=== PATIENT | male | born 1970 | race Caucasian/White ===

== ENCOUNTER 2017-02-14 13:51 | Emergency (ER) | payer SELFPAY ==
--- NOTE | 2017-02-14 16:01 | RADIOLOGY REPORT (SQ) ---
EXAM DESCRIPTION: CHEST PA/LAT COMPLETED DATE/TIME: 02/14/2017 2:46 pm REASON FOR STUDY: cough COMPARISON: 01/06/2008 EXAM PARAMETERS: NUMBER OF VIEWS: two views TECHNIQUE: Digital Frontal and Lateral radiographic views of the chest acquired. RADIATION DOSE: NA LIMITATIONS: none FINDINGS: LUNGS AND PLEURA: No opacities, masses or pneumothorax. No pleural effusion. MEDIASTINUM AND HILAR STRUCTURES: No masses or contour abnormalities. HEART AND VASCULAR STRUCTURES: Heart normal size. No evidence for failure. BONES: No acute findings. HARDWARE: None in the chest. OTHER: No other significant finding. IMPRESSION: NO SIGNIFICANT RADIOGRAPHIC FINDING IN THE CHEST. TECHNICAL DOCUMENTATION: JOB ID: [id number] [employer]- All Rights Reserved
[2017-02-14 16:06] VITALS: BP 133/86
--- NOTE | 2017-02-14 16:06 | ER Document Report ---
ED General - General Chief Complaint: Cough Stated Complaint: COUGH Time Seen by Provider: 02/14/17 14:13 Mode of Arrival: Ambulatory Information source: Patient Notes: 46-year-old male presents with complaints of a cough over the past week. Patient denies any DVT PE risk factors. Patient notes the cough is non productive most of the time with mild white clear sputum. TRAVEL OUTSIDE OF THE [place] IN LAST 30 DAYS: No - HPI Onset: Last week Onset/Duration: Persistent Quality of pain: Achy Severity: Mild Pain Level: 1 Associated symptoms: Nonproductive cough, Productive cough Exacerbated by: Denies Relieved by: Denies Similar symptoms previously: Yes - Last year Recently seen / treated by doctor: No - Related Data Allergies/Adverse Reactions: Penicillins Allergy (Unknown, Verified 03/13/13 19:44) Past Medical History - Social History Smoking Status: Former Smoker Cigarette use (# per day): No Chew tobacco use (# tins/day): No Smoking Education Provided: No Family History: Reviewed & Not Pertinent Patient has suicidal ideation: No Patient has homicidal ideation: No Renal/ Medical History: Denies: Hx Peritoneal Dialysis Past Surgical History: Reports: Hx Inguinal Hernia - Immunizations Hx Diphtheria, Pertussis, Tetanus Vaccination: Yes Review of Systems - Review of Systems Notes: REVIEW OF SYSTEMS: CONSTITUTIONAL : Denies fever, chills, or sweats. Denies recent illness. EENT: Denies eye, ear, throat, or mouth pain or symptoms. Denies nasal or sinus congestion or discharge. Denies throat, tongue, or mouth swelling or difficulty swallowing. CARDIOVASCULAR: Denies chest pain. Denies palpitations or racing or irregular heart beat. Denies ankle edema. RESPIRATORY: Admits to cough GASTROINTESTINAL: Denies abdominal pain or distention. Denies nausea, vomiting , or diarrhea. Denies blood in vomitus, stools, or per rectum. Denies black, tarry stools. Denies constipation. GENITOURINARY: Denies difficulty urinating, painful urination, burning, frequency, blood in urine, or discharge. MUSCULOSKELETAL: Denies back or neck pain or stiffness. Denies joint pain or swelling. SKIN: Denies rash, lesions or sores. HEMATOLOGIC : Denies easy bruising or bleeding. LYMPHATIC: Denies swollen, enlarged glands. NEUROLOGICAL: Denies confusion or altered mental status. Denies passing out or loss of consciousness. Denies dizziness or lightheadedness. Denies headache. Denies weakness or paralysis or loss of use of either side. Denies problems with gait or speech. Denies sensory loss, numbness, or tingling. Denies seizures. PSYCHIATRIC: Denies anxiety or stress. Denies depression, suicidal ideation, or homicidal ideation. ALL OTHER SYSTEMS REVIEWED AND NEGATIVE. Dictation was performed using [employer] voice recognition software PHYSICAL EXAMINATION: GENERAL: Well-appearing, well-nourished and in no acute distress. HEAD: Atraumatic, normocephalic. EYES: Pupils equal round and reactive to light, extraocular movements intact, sclera anicteric, conjunctiva are normal. ENT: Nares patent, oropharynx clear without exudates. Moist mucous membranes. NECK: Normal range of motion, supple without lymphadenopathy LUNGS: Breath sounds clear to auscultation bilaterally and equal. No wheezes rales or rhonchi. HEART: Regular rate and rhythm without murmurs ABDOMEN: Soft, nontender, nondistended abdomen. No guarding, no rebound. No masses appreciated. Musculoskeletal: Normal range of motion, no pitting or edema. No cyanosis. NEUROLOGICAL: Cranial nerves grossly intact. Normal speech, normal gait. Normal sensory, motor exams PSYCH: Normal mood, normal affect. SKIN: Warm, Dry, normal turgor, no rashes or lesions noted. Physical Exam - Vital signs Vitals: Temp Pulse Resp BP Pulse Ox 97.4 F 66 20 134/81 H 97 02/14/17 14:06 02/14/17 14:06 02/14/17 14:06 02/14/17 14:06 02/14/17 14:06 Course - Re-evaluation Re-evalutation: 02/14/17 16:05 Lung sounds were clear physical examination was negative vital signs were within normal limits chest x-ray noted no obvious abnormality, given his complaints believe the patient has bronchitis and I will place him on steroids. He states when he had albuterol in the past he had a stroke from it. Given this history I will not write him for albuterol even though I find the reaction not very possible After performing a Medical Screening Examination, I estimate there is LOW risk for ACUTE CORONARY SYNDROME, RESPIRATORY FAILURE, SEPSIS OR MENINGITIS, thus I consider the discharge disposition reasonable. I have reevaluated this patient multiple times and no significant life threatening changes are noted. The patient and I have discussed the diagnosis and risks, and we agree with discharging home with close follow-up. We also discussed returning to the Emergency Department immediately if new or worsening symptoms occur. We have discussed the symptoms which are most concerning (e.g., changing or worsening pain, trouble swallowing or breathing, neck stiffness, fever) that necessitate immediate return. - Vital Signs Vital signs: Temp Pulse Resp BP Pulse Ox 97.4 F 66 20 134/81 H 97 02/14/17 14:06 02/14/17 14:06 02/14/17 14:06 02/14/17 14:02/14/17 14:06 - Diagnostic Test Radiology reviewed: Image reviewed, Reports reviewed - no acute abnormaltiy Discharge - Discharge Clinical Impression: Bronchitis, Nonproductive cough Disposition: HOME, SELF-CARE Instructions: Bronchitis ([facility]) Additional Instructions: Follow up with your physician tomorrow for further care or return to the ED IMMEDIATELY if symptoms worsen or new concerns occur. If you cannot afford to follow up with your primary care physician a list of low cost clinics have been provided at the end of your discharge papers as well. Prescriptions: Prednisone [Deltasone 20 mg Tablet] 3 tab PO DAILY 5 Days tablet
== END 2017-02-14 16:09 | disposition home or self-care (01) ==
LOC: ER 13:51
DX: J40 Bronchitis, not specified as acute or chronic (principal); R05 Cough; Z87.891 Personal history of nicotine dependence; Z88.0 Allergy status to penicillin
CPT/HCPCS: 71020; 99283

== ENCOUNTER 2018-05-02 17:56 | Emergency (ER) | payer SELFPAY ==
[2018-05-02] MEDS ORDERED: LIDOCAINE 1%/EPINEPHRINE INJ 20 ML VIAL INJ ONE (20:04)
[2018-05-02] MEDS ORDERED: DIPH/PERTUSS(ACELL)/TETANUS VAC/PF 0.5 ML SYR (>=10YO) IM ONE (20:04)
--- NOTE | 2018-05-02 20:17 | ER Document Report ---
ED Wound - General Chief Complaint: Laceration Stated Complaint: LACERATION TO RIGHT HAND Time Seen by Provider: 05/02/18 19:59 Mode of Arrival: Ambulatory Information source: Patient Notes: Patient is a 48-year-old male arriving to the emergency department complaining of a laceration sustained on his right distal forearm while he was reaching inside his heating device at his home when his arm brushed against something sharp while reaching inside the machine. Full range of motion is intact, the bleeding stopped with pressure and he complains of minimal pain currently. He is not up-to-date with his tetanus vaccine. He denies all medical problems and does not take any medications. 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 TRAVEL OUTSIDE OF THE [place] IN LAST 30 DAYS: No - HPI Patient complains to provider of: Laceration Occurred: Just prior to arrival Onset/Duration: Sudden Quality of pain: Sharp Severity: Moderate Pain Level: 2 Context: Injury Skin Temperature: Warm Skin Color: Normal Capillary refill: < 3 seconds Sensations intact: Yes Distal pulses present: Yes Associated Symptoms: None - Related Data Allergies/Adverse Reactions: Penicillins Allergy (Unknown, Verified 03/13/13 19:44) Home Medications: None Past Medical History - General Information source: Patient - Social History Smoking Status: Current Every Day Smoker Smoking Education Provided: Yes Frequency of alcohol use: None Drug Abuse: None Lives with: Family Family History: Reviewed & Not Pertinent - Medical History Medical History: Negative Renal/ Medical History: Denies: Hx Peritoneal Dialysis Past Surgical History: Reports: Hx Inguinal Hernia - Immunizations Hx Diphtheria, Pertussis, Tetanus Vaccination: Yes Review of Systems - Review of Systems Constitutional: No symptoms reported EENT: No symptoms reported Cardiovascular: No symptoms reported Respiratory: No symptoms reported Gastrointestinal: No symptoms reported Genitourinary: No symptoms reported Male Genitourinary: No symptoms reported Musculoskeletal: No symptoms reported Skin: Other - laceration Hematologic/Lymphatic: No symptoms reported Neurological/Psychological: No symptoms reported Physical Exam - Vital signs Vitals: Temp Pulse Resp BP Pulse Ox 98.3 F 92 12 150/88 H 95 05/02/18 18:00 05/02/18 18:00 05/02/18 18:00 05/02/18 18:00 05/02/18 18:00 - Notes Notes: GENERAL: Well-appearing, well-nourished and in no acute distress. HEAD: Atraumatic, normocephalic. EYES: Pupils equal round and reactive to light, extraocular movements intact, sclera anicteric, conjunctiva are normal. ENT: TMs normal, nares patent, oropharynx clear without exudates. Moist mucous membranes. NECK: Normal range of motion, supple without lymphadenopathy or JVD. LUNGS: Breath sounds clear to auscultation bilaterally and equal. No wheezes rales or rhonchi. HEART: Regular rate and rhythm without murmurs, rubs or gallops. ABDOMEN: Soft, nontender, normoactive bowel sounds. No guarding, no rebound. No masses appreciated. EXTREMITIES: Normal range of motion, no pitting or edema. No clubbing or cyanosis. NEUROLOGICAL: Cranial nerves II through XII grossly intact. Normal speech, normal gait. PSYCH: Normal mood, normal affect. SKIN: Warm, Dry, normal turgor, no rashes. 3.5 cm laceration noted on his right distal forearm with no active bleeding. No gross contamination noted. Full range of motion and sensation are intact. Cap refill is less than 3 seconds. Course - Vital Signs Vital signs: Temp Pulse Resp BP Pulse Ox 98.4 F 97 20 142/99 H 98 05/02/18 21:33 05/02/18 21:33 05/02/18 21:33 05/02/18 21:33 05/02/18 21:33 Procedures - Laceration/Wound Repair Right Posterior Wrist Time completed: 21:14 Wound length (cm): 3.3 Wound's Depth, Shape: Flap Laceration pre-procedure: Sterile drapes applied, Shur-Clens applied Anesthetic type: 1% Lidocaine w/epi Volume Anesthetic (mLs): 5 Wound explored: No foreign body removed Irrigated w/ Saline (mLs): 400 Wound Debrided: Minimal Wound Repaired With: Sutures Suture Size/Type: 3:0, Ethilon Number of Sutures: 4 Layer Closure?: No Post-procedure wound care: Sterile dressing applied Post-procedure NV exam normal: Yes - motor intact and cap refill <3 sec Complications: No Hands back picture: 1 - 3.25cm curvilinear laceration with flap. Closed with 3 simple interrupted and 1 horizontal mattress suture. Discharge - Discharge Clinical Impression: Forearm laceration Qualifiers: Encounter type: initial encounter Laterality: right Qualified Code(s): S51.811A - Laceration without foreign body of right forearm, initial encounter Condition: Stable Disposition: HOME, SELF-CARE Instructions: Laceration Care ([facility]), Tetanus Immunization Given ([facility]) Additional Instructions: Return immediately for any new or worsening symptoms Followup with your primary care provider, call tomorrow to make a followup appointment Suture removal in 10 days Forms: Return to Work Referrals: [facility] [Provider Group] - Follow up as needed [facility] [Provider Group] - Follow up as needed
[2018-05-02 21:34] VITALS: BP 142/99
== END 2018-05-02 21:41 | disposition home or self-care (01) ==
LOC: ER 17:56
DX: S61.511A Laceration without foreign body of right wrist, initial encounter (principal); W26.9XXA Contact with unspecified sharp object(s), initial encounter; Y93.89 Activity, other specified; Y92.009 Unspecified place in unspecified non-institutional (private) residence as the place of occurrence of the external cause; F17.210 Nicotine dependence, cigarettes, uncomplicated; Z88.0 Allergy status to penicillin
CPT/HCPCS: 99283; 12002; J3490

== ENCOUNTER 2018-05-12 17:13 | Emergency (ER) | payer SELFPAY ==
--- NOTE | 2018-05-12 18:16 | ER Document Report ---
ED Suture/Wound Recheck - General Chief Complaint: Suture Removal Stated Complaint: SUTURE REMOVAL/RIGHT WRIST Time Seen by Provider: 05/12/18 18:14 Mode of Arrival: Ambulatory Information source: Patient Notes: 48-year-old male presented to ED for removal of sutures from the right distal forearm. Wound is clean dry no drainage no redness no pain. Wound well approximated. Patient alert and oriented respirations regular and in full sentences walks with a even steady gait. TRAVEL OUTSIDE OF THE [place] IN LAST 30 DAYS: No - HPI Previous ED treatment: Laceration repair Quality of pain: No pain Severity: None Pain Level: Denies Context: Injury Symptoms since procedure: No complaints Exacerbated by: Denies Relieved by: Denies - Related Data Allergies/Adverse Reactions: Penicillins Allergy (Unknown, Verified 03/13/13 19:44) Past Medical History - General Information source: Patient - Social History Smoking Status: Current Every Day Smoker Cigarette use (# per day): Yes Smoking Education Provided: Yes - 4 minutes Frequency of alcohol use: None Drug Abuse: None Family History: Reviewed & Not Pertinent Patient has suicidal ideation: No Patient has homicidal ideation: No - Past Medical History Cardiac Medical History: Reports: None Pulmonary Medical History: Reports: None EENT Medical History: Reports: None Neurological Medical History: Reports: None Endocrine Medical History: Reports: None Renal/ Medical History: Reports: None Malignancy Medical History: Reports None GI Medical History: Reports: None Musculoskeletal Medical History: Reports None Skin Medical History: Reports None Psychiatric Medical History: Reports: None Traumatic Medical History: Reports: None Infectious Medical History: Reports: None Past Surgical History: Reports: Hx Inguinal Hernia - Immunizations Immunizations up to date: Yes Hx Diphtheria, Pertussis, Tetanus Vaccination: Yes Review of Systems - Review of Systems Notes: REVIEW OF SYSTEMS: CONSTITUTIONAL : Denies fever, chills, or sweats. Denies recent illness. EENT: Denies eye, ear, throat, or mouth pain or symptoms. Denies nasal or sinus congestion or discharge. Denies throat, tongue, or mouth swelling or difficulty swallowing. CARDIOVASCULAR: Denies chest pain. Denies palpitations or racing or irregular heart beat. Denies ankle edema. RESPIRATORY: Denies cough, cold, or chest congestion. Denies shortness of breath, difficulty breathing, or wheezing. GASTROINTESTINAL: Denies abdominal pain or distention. Denies nausea, vomiting , or diarrhea. Denies blood in vomitus, stools, or per rectum. Denies black, tarry stools. Denies constipation. GENITOURINARY: Denies difficulty urinating, painful urination, burning, frequency, blood in urine, or discharge. MUSCULOSKELETAL: Denies back or neck pain or stiffness. Denies joint pain or swelling. SKIN: Patient to the ED for suture removal from his right wrist area. States he cut it on a heating device at home. States he just needs the sutures removed he is not having any pain discomfort redness or drainage. HEMATOLOGIC : Denies easy bruising or bleeding. LYMPHATIC: Denies swollen, enlarged glands. NEUROLOGICAL: Denies confusion or altered mental status. Denies passing out or loss of consciousness. Denies dizziness or lightheadedness. Denies headache. Denies weakness or paralysis or loss of use of either side. Denies problems with gait or speech. Denies sensory loss, numbness, or tingling. Denies seizures. PSYCHIATRIC: Denies anxiety or stress. Denies depression, suicidal ideation, or homicidal ideation. ALL OTHER SYSTEMS REVIEWED AND NEGATIVE. Dictation was performed using [employer] voice recognition software PHYSICAL EXAMINATION: GENERAL: Well-appearing, well-nourished and in no acute distress. HEAD: Atraumatic, normocephalic. EYES: Pupils equal round and reactive to light, extraocular movements intact, sclera anicteric, conjunctiva are normal. ENT: Nares patent, oropharynx clear without exudates. Moist mucous membranes. NECK: Normal range of motion, supple without lymphadenopathy LUNGS: Breath sounds clear to auscultation bilaterally and equal. No wheezes rales or rhonchi. HEART: Regular rate and rhythm without murmurs ABDOMEN: Soft, nontender, nondistended abdomen. No guarding, no rebound. No masses appreciated. Musculoskeletal: Normal range of motion, no pitting or edema. No cyanosis. NEUROLOGICAL: Cranial nerves grossly intact. Normal speech, normal gait. Normal sensory, motor exams PSYCH: Normal mood, normal affect. SKIN: Warm, Dry, normal turgor, no rashes or lesions noted. Wound well approximated no redness no drainage no tenderness to the area Physical Exam - Vital signs Vitals: Temp Pulse Resp BP Pulse Ox 97.8 F 93 18 139/83 H 97 05/12/18 17:26 05/12/18 17:26 05/12/18 17:26 05/12/18 17:26 05/12/18 17:26 Course - Vital Signs Vital signs: Temp Pulse Resp BP Pulse Ox 97.8 F 88 14 125/78 98 05/12/18 18:17 05/12/18 18:17 05/12/18 18:17 05/12/18 18:17 05/12/18 18:17 Discharge - Discharge Clinical Impression: Visit for suture removal Condition: Stable Disposition: HOME, SELF-CARE Instructions: Family Physicians / Practices Additional Instructions: SOAP CLEANSING: Gently wash the wound daily using a mild soap (like Ivory, Phisoderm, Neutrogena). Use warm water, rubbing gently until all debris, ooze, and crusting have been washed from the wound. Allow to dry briefly (about 10 minutes) after cleaning. Repeat this cleansing at least three times a day for the first two days and then once or twice a day. ANTIBIOTIC OINTMENT PROTECTION: Your wounds are such that dressing them is not practical or optional. After cleansing, you should apply a thin coating of antibiotic ointment ( Bacitracin, not Neosporin) to the wounds at least three times daily. This lessens infection risk, and may decrease the amount of scarring. Use a q-tip or dull butter knife, not your finger, to apply this ointment. Any debris or ooze which builds up in the ointment should be gently rubbed off with a sterile gauze pad. Harder crusting may need to be gently scrubbed off with a clean wash cloth with soap and warm water, perhaps applying a warm, wet wash cloth to the wound for ten minutes first. Development of redness, severe itching, or blistering may mean allergy to the ointment. See the doctor. FOLLOW-UP CARE: If you have been referred to a physician for follow-up care, call the physician s office for an appointment as you were instructed or within the next two days. If you experience worsening or a significant change in your symptoms, notify the physician immediately or return to the Emergency Department at any time for re-evaluation. Forms: Elevated Blood Pressure, Smoking Cessation Education
[2018-05-12 18:18] VITALS: BP 125/78
== END 2018-05-12 18:20 | disposition home or self-care (01) ==
LOC: ER 17:13
DX: S51.811D Laceration without foreign body of right forearm, subsequent encounter (principal); X58.XXXD Exposure to other specified factors, subsequent encounter; F17.210 Nicotine dependence, cigarettes, uncomplicated

== ENCOUNTER 2018-05-25 12:48 | Emergency (ER) | payer OTHER ==
--- NOTE | 2018-05-25 14:27 | ER Document Report ---
ED Fall - General Chief Complaint: Fall Stated Complaint: LEFT ELBOW/LEG PAIN Time Seen by Provider: 05/25/18 14:17 Notes: Patient is a 48-year-old male presents to the emergency department complaining of falling 8 feet off a ladder at 930 this morning. Patient states he landed on his left side. Patient denies hitting his head, loss of consciousness or vomiting. Patient states he fell directly onto cement. States he took Motrin prior to arrival to the emergency room. Patient denies feeling lightheaded, dizzy, weak prior to the fall or after the fall. Patient states he thought he had planted a ladder securely but apparently had not and it slipped. According to patient this is a mechanical fall. Patient is unsure of his last tetanus vaccination. Past medical history: None Medications: None Allergies: Penicillin TRAVEL OUTSIDE OF THE [place] IN LAST 30 DAYS: No - Related data Allergies/Adverse Reactions: Penicillins Allergy (Unknown, Verified 03/13/13 19:44) Past Medical History - General Information source: Patient - Social History Smoking Status: Current Every Day Smoker Family History: Reviewed & Not Pertinent Renal/ Medical History: Denies: Hx Peritoneal Dialysis Past Surgical History: Reports: Hx Inguinal Hernia - Immunizations Immunizations up to date: Yes Hx Diphtheria, Pertussis, Tetanus Vaccination: Yes Review of Systems - Review of Systems Constitutional: See HPI EENT: denies: Blurred vision, Ear discharge Cardiovascular: denies: Dizziness, Lightheaded Respiratory: No symptoms reported Gastrointestinal: No symptoms reported Genitourinary: No symptoms reported Male Genitourinary: No symptoms reported Musculoskeletal: See HPI Skin: See HPI Hematologic/Lymphatic: No symptoms reported Neurological/Psychological: See HPI Physical Exam - Vital signs Vitals: Temp Pulse Resp BP Pulse Ox 98.1 F 88 16 127/77 H 97 05/25/18 12:50 05/25/18 12:50 05/25/18 12:50 05/25/18 12:50 05/25/18 12:50 - Notes Notes: GENERAL: Alert, interacts well. No acute distress. HEAD: Normocephalic, atraumatic. EYES: Pupils equal, round, and reactive to light. Extraocular movements intact. ENT: Oral mucosa moist, tongue midline. Nares patent, no nasal septal hematoma, TM's intact, no hemotympanum bilaterally NECK: Full range of motion. Supple. Trachea midline. LUNGS: Clear to auscultation bilaterally, no wheezes, rales, or rhonchi. No respiratory distress. CHEST: No crepitus felt, no paradoxical motion noted, no erythema or ecchymosis noted to the trunk HEART: Regular rate and rhythm. No murmur ABDOMEN: Soft, non-tender. Non-distended. Bowel sounds present in all 4 quadrants. EXTREMITIES: Moves all 4 extremities spontaneously. normal radial and dorsalis pedis pulses bilaterally. No cyanosis. Minor ecchymosis noted left lateral proximal thigh. Full range of motion left hip without pain upon palpation. Full range of motion left knee and ankle. left lower extremity otherwise atraumatic. Left upper extremity has full range of motion shoulder, elbow, wrist. Superficial abrasion noted posterior left distal wrist laterally. 2 cm laceration noted directly over the left elbow. Bleeding controlled. 5 out of 5 strength all 4 extremities. Right upper and lower extremity atraumatic. BACK: no cervical, thoracic, lumbar midline tenderness. No saddle anesthesia, normal distal neurovascular exam. NEUROLOGICAL: Alert and oriented x3. Normal speech. cranial nerves II through XII grossly intact. PSYCH: Normal affect, normal mood. SKIN: Warm, dry, normal turgor. Course - Re-evaluation Re-evalutation: 05/25/18 16:18 Laceration repaired, patient tolerated well no complications. X-rays revealed no signs of fractures. Discussed at length with patient he may be more sore tomorrow and the day after. Discussed at home Tylenol and Motrin for pain. Patient continues to deny chest pain or abdominal pain. Patient remains non- tachycardic and not hypotensive. Stable for discharge. - Vital Signs Vital signs: Temp Pulse Resp BP Pulse Ox 98.1 F 88 16 127/77 H 97 05/25/18 12:50 05/25/18 12:50 05/25/18 12:50 05/25/18 12:50 05/25/18 12:50 Procedures - Laceration/Wound Repair Elbow Wound length (cm): 2 Wound's Depth, Shape: Superficial Laceration pre-procedure: Sterile PPE donned, Betadine prep applied, Sterile drapes applied, Shur-Clens applied Anesthetic type: 1% Lidocaine w/epi Volume Anesthetic (mLs): 5 Wound explored: Clean Irrigated w/ Saline (mLs): 300 Wound Debrided: Minimal Wound Repaired With: Sutures Suture Size/Type: 3:0, Ethilon Number of Sutures: 3 Post-procedure wound care: Sterile dressing applied Post-procedure NV exam normal: Yes Complications: No Discharge - Discharge Clinical Impression: Laceration Fall Qualifiers: Encounter type: initial encounter Qualified Code(s): W19.XXXA - Unspecified fall, initial encounter Elbow pain Qualifiers: Laterality: left Qualified Code(s): M25.522 - Pain in left elbow Thigh pain Qualifiers: Laterality: left Qualified Code(s): M79.652 - Pain in left thigh Condition: Stable Disposition: HOME, SELF-CARE Instructions: Antibiotic Ointment Protection ([facility]), Laceration Care ([facility]), Tetanus Immunization Given ([facility]) Additional Instructions: As we discussed your seen and treated in the emergency department for a fall and sustaining a laceration to her left elbow. Sutures need to be removed in the next 10-14 days. Follow-up with your primary care provider or return to the emergency room. Should your left elbow appear to be infected, get red, warm , increasing swelling or have any discharge from your lacerations you should return to the emergency room please take [id number] Tylenol and Motrin for generalized pain. Please return to the emergency room for any other concerning symptoms Forms: Return to Work
[2018-05-25] MEDS ORDERED: HYDROCODONE/ACETAMINOPHEN 10-325 MG TABLET PO ONE (14:32)
[2018-05-25] MEDS ORDERED: DIPH/PERTUSS(ACELL)/TETANUS VAC/PF 0.5 ML SYR (>=10YO) IM ONE (14:33)
[2018-05-25] MEDS ORDERED: LIDOCAINE 1%/EPINEPHRINE INJ 20 ML VIAL INJ ONE (14:34)
--- NOTE | 2018-05-25 15:08 | RADIOLOGY REPORT (SQ) ---
EXAM DESCRIPTION: FEMUR LEFT COMPLETED DATE/TIME: 05/25/2018 3:00 pm REASON FOR STUDY: fall COMPARISON: None. NUMBER OF VIEWS: Two views. TECHNIQUE: Two radiographic images acquired of the left femur to include hip and knee in at least on e projection. LIMITATIONS: None. FINDINGS: MINERALIZATION: Normal. BONES: No acute fracture. No worrisome bone lesions. SOFT TISSUES: No obvious swelling or foreign body. OTHER: No other significant finding. IMPRESSION: NEGATIVE STUDY OF THE LEFT FEMUR. NO RADIOGRAPHIC EVIDENCE OF ACUTE INJURY. TECHNICAL DOCUMENTATION: JOB ID: [id number] [employer]- All Rights Reserved Reading location - IP/workstation name: [email or web address]
--- NOTE | 2018-05-25 15:10 | RADIOLOGY REPORT (SQ) ---
EXAM DESCRIPTION: FOREARM LEFT COMPLETED DATE/TIME: 05/25/2018 3:00 pm REASON FOR STUDY: fall COMPARISON: None. NUMBER OF VIEWS: Two views. TECHNIQUE: Two radiographic images acquired of the left forearm, including elbow and wrist in at jen st one projection. LIMITATIONS: None. FINDINGS: MINERALIZATION: Normal. BONES: No acute fracture. No worrisome bone lesions. SOFT TISSUES: No obvious swelling or foreign body. OTHER: No other significant finding. IMPRESSION: NEGATIVE STUDY OF THE LEFT FOREARM. NO RADIOGRAPHIC EVIDENCE OF ACUTE INJURY. TECHNICAL DOCUMENTATION: JOB ID: [id number] [employer]- All Rights Reserved Reading location - IP/workstation name: [email or web address]
--- NOTE | 2018-05-25 15:11 | RADIOLOGY REPORT (SQ) ---
EXAM DESCRIPTION: ELBOW LEFT OVER 2 VIEWS COMPLETED DATE/TIME: 05/25/2018 3:01 pm REASON FOR STUDY: fall COMPARISON: None. NUMBER OF VIEWS: Four views. TECHNIQUE: AP, lateral, and both oblique radiographic images acquired of the left elbow. LIMITATIONS: None. FINDINGS: MINERALIZATION: Normal. BONES: No acute fracture or dislocation. No worrisome bone lesions. JOINT: No effusion. SOFT TISSUES: No soft tissue swelling. No foreign body. OTHER: No other significant finding. IMPRESSION: NEGATIVE STUDY OF THE LEFT ELBOW. NO RADIOGRAPHIC EVIDENCE OF ACUTE INJURY. TECHNICAL DOCUMENTATION: JOB ID: [id number] [employer]- All Rights Reserved Reading location - IP/workstation name: [email or web address]
[2018-05-25 16:50] VITALS: BP 132/77
== END 2018-05-25 16:48 | disposition home or self-care (01) ==
LOC: ER 12:48
PROC: 0HQEXZZ Repair Left Lower Arm Skin, External Approach (ICD-10-PCS; principal; 2018-05-25)
DX: S51.012A Laceration without foreign body of left elbow, initial encounter (principal); M25.522 Pain in left elbow; M79.652 Pain in left thigh; M79.605 Pain in left leg; W11.XXXA Fall on and from ladder, initial encounter; F17.200 Nicotine dependence, unspecified, uncomplicated
CPT/HCPCS: 99283; 90471; 73080; 73552; 73090; 90715; 12001; J3490

== ENCOUNTER 2018-06-04 10:49 | Emergency (ER) | payer OTHER ==
--- NOTE | 2018-06-04 11:16 | ER Document Report ---
ED Medical Screen (RME) - General Chief Complaint: Knee Pain Stated Complaint: SUTURE REMOVAL Time Seen by Provider: 06/04/18 11:14 Mode of Arrival: Ambulatory Information source: Patient TRAVEL OUTSIDE OF THE [place] IN LAST 30 DAYS: No - HPI Patient complains to provider of: SR and R knee pain Onset: Other - pt. here for SR L elbow and has had R knee pain for the past 2-3 days - Related Data Allergies/Adverse Reactions: Penicillins Allergy (Unknown, Verified 06/04/18 10:50) Past Medical History - Social History Chew tobacco use (# tins/day): No Drug Abuse: None Renal/ Medical History: Denies: Hx Peritoneal Dialysis Past Surgical History: Reports: Hx Inguinal Hernia - Immunizations Immunizations up to date: Yes Hx Diphtheria, Pertussis, Tetanus Vaccination: Yes Physical Exam - Vital signs Vitals: Temp Pulse Resp BP Pulse Ox 97.8 F 64 18 140/94 H 99 06/04/18 10:54 06/04/18 10:54 06/04/18 10:54 06/04/18 10:54 06/04/18 10:54 Course - Vital Signs Vital signs: Temp Pulse Resp BP Pulse Ox 97.8 F 64 18 140/94 H 99 06/04/18 10:54 06/04/18 10:54 06/04/18 10:54 06/04/18 10:54 06/04/18 10:54
--- NOTE | 2018-06-04 11:52 | RADIOLOGY REPORT (SQ) ---
EXAM DESCRIPTION: KNEE RIGHT 3 VIEWS COMPLETED DATE/TIME: 06/04/2018 11:42 am REASON FOR STUDY: R knee pain COMPARISON: 10/17/2010 NUMBER OF VIEWS: Three views. TECHNIQUE: AP, lateral, and sunrise patella radiographic images acquired of the right knee. LIMITATIONS: None. FINDINGS: MINERALIZATION: Normal. BONES: No acute fracture or dislocation. No worrisome bone lesions. JOINT: No effusion. SOFT TISSUES: No soft tissue swelling. No radio-opaque foreign body. OTHER: No other significant finding. IMPRESSION: NEGATIVE STUDY OF THE RIGHT KNEE. NO RADIOGRAPHIC EVIDENCE OF ACUTE INJURY. TECHNICAL DOCUMENTATION: JOB ID: [id number] [employer]- All Rights Reserved Reading location - IP/workstation name: [email or web address]
--- NOTE | 2018-06-04 12:19 | ER Document Report ---
ED Extremity Problem, Lower - General Chief Complaint: Knee Pain Stated Complaint: SUTURE REMOVAL Time Seen by Provider: 06/04/18 11:14 Mode of Arrival: Ambulatory Notes: 48-year-old male was presented to ED for complaint of right knee pain and need to have sutures removed from his left elbow. He states that the knee pain is been chronic no changes no swelling he just wanted to have someone look at his knee. He said mainly he wanted the sutures removed from his left elbow from his injury a week ago. Patient has full range of motion to the knee and is ambulating with even steady gait. There is no swelling bruising or changes noted to the knee. TRAVEL OUTSIDE OF THE [place] IN LAST 30 DAYS: No - HPI Patient complains to provider of: Other - Need for suture removal from left elbow and complaint of chronic knee pain Location: Knee Occurred: Other - On Onset/Duration: Intermittent Quality of pain: Achy Severity: None Pain Level: Denies Context: Other - Chronic knee pain no actual knee pain at this time Recent injury: No Exacerbated by: Movement, Walking Relieved by: Nothing - Related Data Allergies/Adverse Reactions: Penicillins Allergy (Unknown, Verified 06/04/18 10:50) Past Medical History - General Information source: Patient - Social History Smoking Status: Current Every Day Smoker Cigarette use (# per day): Yes Chew tobacco use (# tins/day): No Smoking Education Provided: Yes - 4 minutes Frequency of alcohol use: Occasional Drug Abuse: None Family History: Reviewed & Not Pertinent Patient has suicidal ideation: No Patient has homicidal ideation: No - Past Medical History Cardiac Medical History: Reports: None Pulmonary Medical History: Reports: None EENT Medical History: Reports: None Neurological Medical History: Reports: None Endocrine Medical History: Reports: None Renal/ Medical History: Reports: None Malignancy Medical History: Reports None GI Medical History: Reports: None Musculoskeletal Medical History: Reports Hx Musculoskeletal Trauma Skin Medical History: Reports None Psychiatric Medical History: Reports: None Traumatic Medical History: Reports: None Infectious Medical History: Reports: None Past Surgical History: Reports: Hx Inguinal Hernia - Immunizations Immunizations up to date: Yes Hx Diphtheria, Pertussis, Tetanus Vaccination: Yes Review of Systems - Review of Systems Constitutional: No symptoms reported EENT: No symptoms reported Cardiovascular: No symptoms reported Respiratory: No symptoms reported Gastrointestinal: No symptoms reported Genitourinary: No symptoms reported Male Genitourinary: No symptoms reported Musculoskeletal: No symptoms reported Skin: Other - Sutures to left elbow removed no redness no drainage no signs of inflammation or infection. Laceration doing well. Hematologic/Lymphatic: No symptoms reported Neurological/Psychological: No symptoms reported -: Yes All other systems reviewed and negative Physical Exam - Vital signs Vitals: Temp Pulse Resp BP Pulse Ox 97.8 F 64 18 140/94 H 99 06/04/18 10:54 06/04/18 10:54 06/04/18 10:54 06/04/18 10:54 06/04/18 10:54 Interpretation: Normal - General General appearance: Appears well, Alert - HEENT Head: Normocephalic, Atraumatic Eyes: Normal Pupils: PERRL - Respiratory Respiratory status: No respiratory distress Chest status: Nontender Breath sounds: Normal Chest palpation: Normal - Cardiovascular Rhythm: Regular Heart sounds: Normal auscultation Murmur: No - Abdominal Inspection: Normal Distension: No distension Bowel sounds: Normal Tenderness: Nontender Organomegaly: No organomegaly - Back Back: Normal, Nontender - Extremities General upper extremity: Normal inspection, Nontender, Normal color, Normal ROM, Normal temperature General lower extremity: Normal inspection, Nontender, Normal color, Normal ROM, Normal temperature, Normal weight bearing. No: Mariano's sign Knee: Tender, Patellar tendon intact, Tender joint line. No: Abrasion, Deformity, Dislocation, Drawer's test instability, Ecchymosis, Instability, Joint effusion, Laceration, Laxity with valgus stress, Laxity with varus stress, Pain with ROM, Popliteal fossa tender, Unable to bear weight - Neurological Neuro grossly intact: Yes Cognition: Normal Orientation: AAOx4 Paradise Coma Scale Eye Opening: Spontaneous Paradise Coma Scale Verbal: Oriented Susan Coma Scale Motor: Obeys Commands Paradise Coma Scale Total: 15 Speech: Normal Motor strength normal: LUE, RUE, LLE, RLE Sensory: Normal - Psychological Associated symptoms: Normal affect, Normal mood - Skin Skin Temperature: Warm Skin Moisture: Dry Skin Color: Normal Skin irregularity: Laceration - Well granulated no signs of infection no inflammation no redness no drainage Location of irregularity: Extremities - Left elbow Course - Vital Signs Vital signs: Temp Pulse Resp BP Pulse Ox 97.5 F 61 16 129/86 H 100 06/04/18 12:19 06/04/18 12:19 06/04/18 12:19 06/04/18 12:19 06/04/18 12:19 Discharge - Discharge Clinical Impression: Visit for suture removal Right knee pain Qualifiers: Chronicity: chronic Qualified Code(s): M25.561 - Pain in right knee Condition: Stable Disposition: HOME, SELF-CARE Instructions: Family Physicians / Practices, Suture Removal Additional Instructions: Arthralgia Arthralgia is pain in the joints. We use the word arthralgia to describe joint pain where there's no history of injury, no known joint disease, and the joints are normal to examination. Arthralgia can be a symptom of an acute illness, such as influenza, hepatitis, or serum sickness. Sometimes the joint pain comes before any other symptoms. Arthralgia can also be an early symptom of joint disease, such as rheumatoid arthritis or lupus. If arthralgia is accompanied by an acute illness that explains the joint pain, such as mononucleosis, no further testing needs to be done. When there's no clear reason for the pain, tests may be done to see if there's an inflammatory disease of the joints. The usual treatment is anti-inflammatory medication, such as ibuprofen. Joint aches can be soothed with a heating pad or hot compress. If joints remain painful more than a few days, you'll need testing and followup. Return if a joint becomes swollen, red, or severely painful. Chronic Pain Control Stress, inactivity, and depression make pain more severe regardless of the cause of the pain. Stress and poor physical condition can cause pain such as headaches and backache. Relaxation: Rest in a quiet place with your eyes closed for 20 minutes twice daily. Concentrate on a pleasant image, or simply "feel" your breathing. Clear your mind. Stress management: Deal with your "stressors." Either take action, or eliminate the stressor from your life. Don't let things hang over you. Accept those things you can't change. Nutrition: Eat small, balanced meals -- don't skip, don't overeat. Meals should be high-carbohydrate, low-sugar, low-fat. Exercise: Exercise helps painful conditions and eases stress. Get 30 minutes of moderate exercise, five days a week. Do an activity that does not flare your pain. Precautions: Pain which continues to disrupt daily activities, or which changes in nature, requires a medical evaluation. Pain Clinic referral is available. We do not manage chronic pain in the Emergency Department. We will try to appropriately help you through an acute flare of your chronic painful condition, but for on-going chronic pain that does not improve, you will need to see your private doctor or automotive painter helper. We do not provide repeated medication management of chronic painful conditions. If you wish, we can provide the name of local pain management physicians. Acetaminophen Acetaminophen may be taken for pain relief or fever control. It's much safer than aspirin, offering a wider range of "safe" dosages. It is safe during . Some brand names are Tylenol, Panadol, Datril, Anacin 3, Tempra, and Liquiprin. Acetaminophen can be repeated every four hours. The following are maximum recommended dosages: WEIGHT Dose Drops Elixir Chewable(80mg) (LBS.) drprs=droppers tsp=teaspoon 6 40 mg .4 ml (1/2) 6-11 80 mg .8 ml (full) 1/2 tsp 1 tab 12-16 120 mg 1 1/2 drprs 3/4 tsp 1 1/2 tabs 17-23 160 mg 2 drprs 1 tsp 2 tabs 24-30 240 mg 3 drprs 1 1/2 tsp 3 tabs 30-35 320 mg 2 tsp 4 tabs 36-41 360 mg 2 1/4 tsp 4 1/2 tabs 42-47 400 mg 2 1/2 tsp 5 tabs 48-53 480 mg 3 tsp 6 tabs 54-59 520 mg 3 1/4 tsp 6 1/2 tabs 60-64 560 mg 3 1/2 tsp 7 tabs 65-70 600 mg 3 3/4 tsp 7 1/2 tabs 71-76 640 mg 4 tsp 8 tabs 77-82 720 mg 4 1/2 tsp 9 tabs 83-88 800 mg 5 tsp 10 tabs >89 pounds or adults 650 mg to 900 mg Acetaminophen can be repeated every four hours. Maximum daily dose not to exceed 4000 mg. These maximum recommended dosages are slightly higher than the dosages written on the product container, but these dosages are very safe and well below the toxic dosage for acetaminophen. Ibuprofen Ibuprofen is an excellent, safe drug for pain control. In addition, it has potent antiinflammatory effects which are beneficial, especially in the treatment of injuries, arthritis, or tendonitis. It's best to take ibuprofen with food. Persons with ulcer disease or allergy to aspirin should notify their physician of this before taking ibuprofen. Take the medication exactly as prescribed. Don't take additional doses unless instructed to do so by your doctor. If you develop wheezing, shortness of breath, hives, faintness, stomach pain, vomiting, or dark black stools, return for re-evaluation at once. FOLLOW-UP CARE: If you have been referred to a physician for follow-up care, call the physicians office for an appointment as you were instructed or within the next two days. If you experience worsening or a significant change in your symptoms, notify the physician immediately or return to the Emergency Department at any time for re-evaluation. Forms: Smoking Cessation Education, Elevated Blood Pressure Referrals: [facility] ([facility]) [Provider Group] - Follow up as needed
[2018-06-04 12:26] VITALS: BP 129/86
== END 2018-06-04 12:19 | disposition home or self-care (01) ==
LOC: ER 10:49
DX: S81.011D Laceration without foreign body, right knee, subsequent encounter (principal); X58.XXXD Exposure to other specified factors, subsequent encounter; F17.210 Nicotine dependence, cigarettes, uncomplicated; Z88.0 Allergy status to penicillin
CPT/HCPCS: 99283; 99406

== ENCOUNTER 2019-03-14 20:34 | Emergency (ER) | payer SELFPAY ==
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
[2019-03-14] MEDS ORDERED: LIDOCAINE 2% URO-JET 5 ML KIT MM ONE (21:43)
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
[2019-03-14] MEDS ORDERED: BACITRACIN ZINC OINTMENT 15 GM TP ONE (23:33)
[2019-03-14] MEDS ORDERED: HYDROCODONE/ACETAMINOPHEN 5-325 MG TABLET PO ONE (23:34)
[2019-03-14] MEDS ORDERED: BACITRACIN ZINC OINTMENT 15 GM ONE (23:47)
[2019-03-15 00:16] VITALS: BP 139/98
== END 2019-03-15 00:16 | disposition home or self-care (01) ==
LOC: ER 20:34
DX: T23.651A Corrosion of second degree of right palm, initial encounter (principal); T23.671A Corrosion of second degree of right wrist, initial encounter; T65.891A Toxic effect of other specified substances, accidental (unintentional), initial encounter; Y93.89 Activity, other specified; Z87.891 Personal history of nicotine dependence; Z88.0 Allergy status to penicillin
CPT/HCPCS: J3490 ×2

== ENCOUNTER → 2020-02-15 | Outpatient (CLI) | payer SELFPAY ==
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
[2020-02-15 09:27] VITALS: BP 118/94
== END ==
LOC: RDC 09:05
PROVIDERS: ATTEND Nurse Practitioner Family
DX: Z03.818 Encounter for observation for suspected exposure to other biological agents ruled out (principal)
CPT/HCPCS: 87635; C9803; 99201; 99211

== ENCOUNTER 2020-03-14 09:58 | Emergency (ER) | payer SELFPAY ==
--- NOTE | 2020-03-14 10:27 | ER Document Report ---
ED Medical Screen (RME) - General Chief Complaint: Headache Stated Complaint: HEAD PAIN Time Seen by Provider: 03/14/20 10:22 Mode of Arrival: Ambulatory Information source: Patient Notes: 50-year-old male presents to ED for complaint of headaches that started about 6 weeks and to become more more frequently. He states he is been taken Tylenol Motrin and someone told him they were migraines so he started taking migraine medicines still no relief. He states this last week they have been almost constant. He states across the front of his head and down his neck. He is alert oriented respirations regular nonlabored speaking in full sentences denies any past medical history does have a history of inguinal hernia repair drinks maybe twice to 3 times a year no smoke no drugs. I have greeted and performed a rapid initial assessment of this patient. A comprehensive ED assessment and evaluation of the patient, analysis of test results and completion of medical decision making process will be conducted by an additional ED providers. TRAVEL OUTSIDE OF THE [place] IN LAST 30 DAYS: No - Related Data Allergies/Adverse Reactions: Penicillins Allergy (Unknown, Verified 03/14/20 10:19) Past Medical History - Social History Chew tobacco use (# tins/day): No Frequency of alcohol use: None Drug Abuse: None Renal/ Medical History: Denies: Hx Peritoneal Dialysis Musculoskeltal Medical History: Reports Hx Musculoskeletal Trauma Past Surgical History: Reports: Hx Inguinal Hernia - Immunizations Immunizations up to date: Yes Hx Diphtheria, Pertussis, Tetanus Vaccination: Yes Physical Exam - Vital signs Vitals: Temp Pulse Resp BP Pulse Ox 97.9 F 61 18 151/98 H 95 03/14/20 10:03/14/20 10:03/14/20 10:03/14/20 10:04 03/14/20 10:04 Course - Vital Signs Vital signs: Temp Pulse Resp BP Pulse Ox 97.9 F 61 18 151/98 H 95 03/14/20 10:03/14/20 10:03/14/20 10:03/14/20 10:04 03/14/20 10:04
[2020-03-14 11:24] LABS: APPEARANCE,URINE CLEAR; BILIRUBIN,URINE NEGATIVE (NEGATIVE); COLOR,URINE YELLOW; GLUCOSE, URINE NEGATIVE (NEGATIVE); KETONES,URINE NEGATIVE (NEGATIVE); LEUKOCYTE ESTERASE,URINE NEGATIVE (NEGATIVE); NITRITE,URINE NEGATIVE (NEGATIVE); PROTEIN,URINE NEGATIVE (NEGATIVE); URINE SPECIFIC GRAVITY 1.018; UROBILINOGEN,URINE NEGATIVE mg/dL (<2.0)
[2020-03-14 11:26] LABS: ABSOLUTE BASOPHILS # (AUTO) 0.1 10^3/uL (0.0-0.2); ABSOLUTE EOSINOPHILS # (AUTO) 0.2 10^3/uL (0.0-0.6); ABSOLUTE LYMPHOCYTES (AUTO) 1.7 10^3/uL (0.5-4.7); ABSOLUTE MONOCYTES (AUTO) 0.5 10^3/uL (0.1-1.4); ABSOLUTE NEUT (AUTO) 2.8 10^3/uL (1.7-8.2); BASOPHILS % (AUTO) 1.5 % (0-2); EOSINOPHILS % (AUTO) 3.9 % (0-6); HEMATOCRIT 40.8 % (37.9-51.0); HEMOGLOBIN 14.4 g/dL (13.5-17.0); INTERNATIONAL RATION (INR) 0.96; LYMPHOCYTES % (AUTO) 31.5 % (13-45); MEAN CORPUSCULAR HEMOGLOBIN 32.5 pg (27.0-33.4); MEAN CORPUSCULAR HGB CONC 35.3 g/dL (32.0-36.0); MEAN CORPUSCULAR VOLUME 92 fl (80-97); MONOCYTES % (AUTO) 9.7 % (3-13); PARTIAL THROMBOPLASTIN TIME 30.3 SEC (23.5-35.8); PLATELET COUNT 174 10^3/uL (150-450); RED BLOOD COUNT 4.43 10^6/uL (4.35-5.55); RED CELL DISTRIBUTION WIDTH 13.2 % (11.5-14.0); SEGMENTED NEUTROPHILS % (AUTO) 53.4 % (42-78); TOTAL CELLS COUNTED % (AUTO) 100 %; WHITE BLOOD COUNT 5.3 10^3/uL (4.0-10.5)
[2020-03-14 11:39] LABS: URINE AMPHETAMINES SCREEN NEGATIVE; URINE BARBITURATES SCREEN NEGATIVE; URINE BENZODIAZEPINES SCREEN NEGATIVE; URINE COCAINE SCREEN NEGATIVE; URINE MARIJUANA (THC) SCREEN NEGATIVE; URINE METHADONE SCREEN NEGATIVE; URINE PHENCYCLIDINE SCREEN NEGATIVE
[2020-03-14 11:44] LABS: ALBUMIN 4.2 g/dL (3.5-5.0); ALKALINE PHOSPHATASE 50 U/L (38-126); ANION GAP 8 (5-19); ASPARTATE AMINO TRANSFERASE 29 U/L (17-59); BILIRUBIN,DIRECT 0.2 mg/dL (0.0-0.4); BILIRUBIN,TOTAL 0.8 mg/dL (0.2-1.3); BLOOD UREA NITROGEN 14 mg/dL (7-20); CARBON DIOXIDE 29 mmol/L (22-30); CHLORIDE 102 mmol/L (98-107); GLUCOSE 89 mg/dL (75-110); POTASSIUM 3.9 mmol/L (3.6-5.0); TOTAL PROTEIN 6.8 g/dL (6.3-8.2)
--- NOTE | 2020-03-14 12:50 | RADIOLOGY REPORT (SQ) ---
EXAM DESCRIPTION: CT HEAD WITHOUT IMAGES COMPLETED DATE/TIME: 03/14/2020 12:40 pm REASON FOR STUDY: headache COMPARISON: None. TECHNIQUE: Axial images acquired through the brain without intravenous contrast. Images reviewed wi th bone, brain and subdural windows. Additional sagittal and coronal reconstructions were generated. Images stored on PACS. All CT scanners at this facility use dose modulation, iterative reconstruction, and/or weight based d osing when appropriate to reduce radiation dose to as low as reasonably achievable (ALARA). [facility]: Dose Right [facility]: CareDose [facility]: Dose Right [facility]: Teradose 4D [facility]: Faction Skis RADIATION DOSE: CT Rad equipment meets quality standard of care and radiation dose reduction techniq ues were employed. CTDIvol: 53.2 mGy. DLP: 1097 mGy-cm. mGy. LIMITATIONS: None. FINDINGS: VENTRICLES: Normal size and contour. CEREBRUM: No masses. No hemorrhage. No midline shift. No evidence for acute infarction. Normal gra y/white matter differentiation. No areas of low density in the white matter. CEREBELLUM: No masses. No hemorrhage. No alteration of density. No evidence for acute infarction. EXTRAAXIAL SPACES: No fluid collections. No masses. ORBITS AND GLOBE: No intra- or extraconal masses. Normal contour of globe without masses. CALVARIUM: No fracture. PARANASAL SINUSES: No fluid or mucosal thickening. SOFT TISSUES: No mass or hematoma. OTHER: No other significant finding. IMPRESSION: NORMAL BRAIN CT WITHOUT CONTRAST. EVIDENCE OF ACUTE STROKE: NO. COMMENT: Quality ID # [id number]: Final reports with documentation of one or more dose reduction techniques (e.g., Automated exposure control, adjustment of the mA and/or kV according to patient size, use of iterative reconstruction technique) TECHNICAL DOCUMENTATION: JOB ID: [id number] 2010 [employer]- All Rights Reserved Reading location - IP/workstation name: [email or web address]
--- NOTE | 2020-03-14 13:00 | ER Document Report ---
ED General - General Chief Complaint: Headache Stated Complaint: HEAD PAIN Time Seen by Provider: 03/14/20 10:22 Mode of Arrival: Ambulatory TRAVEL OUTSIDE OF THE [place] IN LAST 30 DAYS: No - HPI Notes: Chief complaint: Headache and neck pain intermittently History of present illness: Generally healthy 50-year-old male taking no regular medications with no known allergies reports 1 month history of intermittent throbbing pain in his head and neck. No history of trauma. No skin rashes. No fever. No tick bites. Takes no regular medications. No known allergies. Smoking over 20 years ago. Rare alcohol consumption. Denies drug abuse. 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 No known exposure to ill individuals. - Related Data Allergies/Adverse Reactions: Penicillins Allergy (Unknown, Verified 03/14/20 10:19) Past Medical History - General Information source: Patient - Social History Smoking Status: Former Smoker Chew tobacco use (# tins/day): No Frequency of alcohol use: None Drug Abuse: None Family History: Reviewed & Not Pertinent Patient has homicidal ideation: No Renal/ Medical History: Denies: Hx Peritoneal Dialysis Musculoskeletal Medical History: Reports Hx Musculoskeletal Trauma Past Surgical History: Reports: Hx Inguinal Hernia - Immunizations Immunizations up to date: Yes Hx Diphtheria, Pertussis, Tetanus Vaccination: Yes Review of Systems - Review of Systems Notes: Constitutional: Negative for fever. HENT: Negative for sore throat. Eyes: Negative for visual changes. Cardiovascular: Negative for chest pain. Respiratory: Negative for shortness of breath. Gastrointestinal: Negative for abdominal pain, vomiting or diarrhea. Genitourinary: Negative for dysuria. Musculoskeletal: Negative for back pain. Skin: Negative for rash. Neurological: As per HPI. No focal weakness or numbness. 10 point ROS negative except as marked above and in HPI. Physical Exam - Vital signs Vitals: Temp Pulse Resp BP Pulse Ox 97.9 F 61 18 151/98 H 95 03/14/20 10:04 03/14/20 10:04 03/14/20 10:04 03/14/20 10:04 03/14/20 10:04 - Notes Notes: GENERAL: Well-developed well-nourished male approximately stated age appearing in no acute distress. SKIN: Good turgor no rashes. HEAD: Normocephalic atraumatic. EYES: PERRLA. EOMI. Conjunctivae and sclerae clear. EARS: CANALS AND TMS CLEAR. NOSE: CLEAR. MOUTH: Moist mucosa. Good dentition. No stridor or edema. No drooling. NECK: Supple. No masses or thyromegaly. No adenopathy. Carotids 2+ without bruits. No JVD. BACK: Symmetrical without tenderness. CHEST: Respirations unlabored. Breath sounds clear and symmetrical. HEART: Regular rhythm. No murmur gallop or rub. ABDOMEN: Soft nontender without masses, organomegaly or rebound. Bowel sounds normally active. No bruits. GENITALIA: Deferred. EXTREMITIES: No edema. No calf tenderness. Cap refill less than 1.5 seconds. Dorsalis pedis and posterior tibial pulses 3+ and symmetrical. NEUROLOGICAL: GCS 15. Alert and oriented x3. Normal gait. Fluent speech. Cranial nerves II through XII intact. Sensorimotor and cerebellar normal. Normal tone. PSYCHIATRIC: Appropriate affect. Course - Re-evaluation Re-evalutation: 03/14/20 12:58 CBC and comprehensive metabolic profile are unremarkable. Normal head CT. Normal neurologic exam. Blood pressure is elevated. This will need follow-up. We will refer him to a primary care doctor and I am going to treat him with naproxen symptomatically. Findings, clinical impression and plan of treatment have been discussed with patient/family. Understanding of current findings and recommendations has been acknowledged by them and there is agreement regarding disposition and follow-up. - Vital Signs Vital signs: Temp Pulse Resp BP Pulse Ox 97.9 F 61 18 151/98 H 95 03/14/20 10:04 03/14/20 10:04 03/14/20 10:04 03/14/20 10:04 03/14/20 10:04 - Laboratory Result Diagrams: 03/14/20 10:40 03/14/20 10:40 Laboratory results interpreted by me: 03/14/20 10:40 Urine Blood SMALL H - Diagnostic Test Radiology reviewed: Reports reviewed - Per radiologist: Normal noncontrast head CT Discharge - Discharge Clinical Impression: Headache, Elevated BP without diagnosis of hypertension Condition: Stable Disposition: HOME, SELF-CARE Instructions: Headache ([facility]) Additional Instructions: See primary care doctor for reevaluation of your blood pressure within the next 1 week. Prescribed medication as needed for head and neck pain. Return here as needed for new or worsening symptoms: Pain that is worsening or unimproved Uncontrolled vomiting High fever or shaking chills Overall worsening Prescriptions: Naproxen 500 mg PO BID PRN 7 Days #14 tablet PRN Reason: Forms: Elevated Blood Pressure Referrals: [facility] [Provider Group] - Follow up as needed
[2020-03-14 13:11] VITALS: BP 148/96
== END 2020-03-14 13:11 | disposition home or self-care (01) ==
LOC: ER 09:58
DX: R51.9 Headache, unspecified (principal); R03.0 Elevated blood-pressure reading, without diagnosis of hypertension; M54.2 Cervicalgia; Z88.3 Allergy status to other anti-infective agents
CPT/HCPCS: 36415; 70450; 80053; 80307; 81001; 83690; 85025; 85610; 85730; 99284

== ENCOUNTER 2020-06-24 08:46 | Emergency (ER) | payer OTHER, SELFPAY ==
[2020-06-24 08:53] VITALS: BP 143/102
[2020-06-24] MEDS ORDERED: LIDOCAINE 1.5%/EPINEPHRINE INJ-PF 30 ML SDV INJ ONE (09:19)
[2020-06-24] MEDS ORDERED: LIDOCAINE 1%/EPINEPHRINE INJ 20 ML VIAL INJ ONE (09:25)
--- NOTE | 2020-06-24 09:46 | ER Document Report ---
ED General - General Chief Complaint: Abscess Stated Complaint: POSSIBLE INSECT BITE Time Seen by Provider: 06/24/20 09:14 Mode of Arrival: Ambulatory Information source: Patient TRAVEL OUTSIDE OF THE [place] IN LAST 30 DAYS: No - HPI Notes: Patient presents complaining of upper abdominal pain. He states approximate 3 to 4 days ago he noticed a red painful area in the upper part of his abdomen. He states he has not been picking at it or squeezing it. He states he has noticed no drainage from it. However he states it is become progressively more red and painful. He denies any previous episodes of similar processes. patient's pain is a burning sensation. It is mild to moderate. It is constant. Is worse if touched and better if left alone. - Related Data Allergies/Adverse Reactions: Penicillins Allergy (Unknown, Verified 06/24/20 09:04) Home Medications: denies Past Medical History - General Information source: Patient - Social History Smoking Status: Current Every Day Smoker Chew tobacco use (# tins/day): No Frequency of alcohol use: None Drug Abuse: None Family History: Reviewed & Not Pertinent Patient has homicidal ideation: No Renal/ Medical History: Denies: Hx Peritoneal Dialysis Musculoskeletal Medical History: Reports Hx Musculoskeletal Trauma Past Surgical History: Reports: Hx Abdominal Surgery - rt inguinal hernia, Hx Inguinal Hernia - Immunizations Immunizations up to date: Yes Hx Diphtheria, Pertussis, Tetanus Vaccination: Yes Review of Systems - Review of Systems Constitutional: denies: Chills, Fever Cardiovascular: denies: Chest pain, Palpitations Gastrointestinal: denies: Diarrhea, Nausea, Vomiting -: Yes All other systems reviewed and negative Physical Exam - Vital signs Vitals: Temp Pulse Resp BP Pulse Ox 98.1 F 68 16 143/102 H 97 06/24/20 08:51 06/24/20 08:51 06/24/20 08:51 06/24/20 08:51 06/24/20 08:51 Interpretation: Hypertensive - General General appearance: Appears well, Alert - HEENT Head: Normocephalic, Atraumatic Eyes: Normal Pupils: PERRL - Respiratory Respiratory status: No respiratory distress Chest status: Nontender Breath sounds: Normal Chest palpation: Normal - Cardiovascular Rhythm: Regular Heart sounds: Normal auscultation Murmur: No - Abdominal Inspection: Other - Patient has an obvious abdominal wall abscess in the superior central abdomen Distension: No distension Bowel sounds: Normal Tenderness: Tender - Patient is tender over the area of the abscess Organomegaly: No organomegaly - Back Back: Normal, Nontender - Extremities General upper extremity: Normal inspection, Nontender, Normal color, Normal ROM, Normal temperature General lower extremity: Normal inspection, Nontender, Normal color, Normal ROM, Normal temperature, Normal weight bearing. No: Mariano's sign - Neurological Neuro grossly intact: Yes Cognition: Normal Orientation: AAOx4 [place] Coma Scale Eye Opening: Spontaneous Susan Coma Scale Verbal: Oriented Susan Coma Scale Motor: Obeys Commands [place] Coma Scale Total: 15 Speech: Normal Motor strength normal: LUE, RUE, LLE, RLE Sensory: Normal - Psychological Associated symptoms: Normal affect, Normal mood - Skin Skin Temperature: Warm Skin Moisture: Dry Skin Color: Erythema, Other - Patient has a tender indurated, erythematous, fluctuant area consistent with an abdominal wall abscess in the superior central abdominal wall Course - Vital Signs Vital signs: Temp Pulse Resp BP Pulse Ox 98.1 F 68 16 143/102 H 97 06/24/20 08:51 06/24/20 08:51 06/24/20 08:51 06/24/20 08:51 06/24/20 08:51 - Laboratory Results Critical Laboratory Results Reviewed: No Critical Results - Radiology Results Critical Radiology Results Reviewed: No Critical Results Procedures - Incision and Drainage Upper Abdomen Time completed: 09:41 Type: Simple Anesthetic type: 1% Lidocaine mL's of anesthetic: 2 Blade size: 11 I&D procedure: Iodoform packing placed, Sterile dressing applied Incision Method: Incision made by scalpel Discharge - Discharge Clinical Impression: Abdominal wall abscess Condition: Stable Disposition: HOME, SELF-CARE Instructions: Abscess ([facility]), Oral Narcotic Medication ([facility]), Trimethoprim-Sulfa ([facility]), Post Incision and Drainage Additional Instructions: Your blood pressure is elevated today. Please have this rechecked within 1 week by your family doctor. Prescriptions: Sulfamethoxazole/Trimethoprim [Bactrim Ds Tablet] 1 each PO BID 7 Days #14 tablet Forms: Elevated Blood Pressure, Return to Work Referrals: [facility] [Provider Group] - Follow up in 1 week
== END 2020-06-24 09:57 | disposition home or self-care (01) ==
LOC: ER 08:46
DX: L02.211 Cutaneous abscess of abdominal wall (principal); F17.200 Nicotine dependence, unspecified, uncomplicated; Z88.0 Allergy status to penicillin
CPT/HCPCS: 99283; J3490

== ENCOUNTER 2020-06-26 08:47 | Emergency (ER) | payer OTHER ==
[2020-06-26 08:51] VITALS: BP 144/94
--- NOTE | 2020-06-26 10:27 | ER Document Report ---
ED Wound - General Chief Complaint: Wound Recheck Stated Complaint: WOUND RECHECK Time Seen by Provider: 06/26/20 10:05 Mode of Arrival: Ambulatory Information source: Patient Notes: 06/26/20 10:02 - ED Nursing Note by JUVENCIO FABIAN Num: [id number] : [id number] Patient Age: 50 patient arrives to ED for wound recheck. The patient reports he had an I&D on Wednesday and was instructed to follow-up today for packing removal. Patient does have redness noted to the abdomen. Breathing is even and unlabored, speaking in complete and clear sentences. NAD. Initialized on 06/26/20 10:02 - END OF NOTE MY NOTES 50-year-old male arrives for repacking of his abdominal spider bite abscess on the prior 2 days. He reports for 5 days ago he began to have a irritated papule mid abdomen just 5 cm caudal to his umbilicus. He advises he began to get red and his family thought looking online that it resembled a spider bite. Patient denies any spider bites. He had I&D here as per prior ED documentation. He is here today for repacking. The wound appears to be much improved but he has not gotten his antibiotics nor taken any of his pain medicine yet he said the antibiotic alejandra was $6 and someone loaned him some money to get this filled today. TRAVEL OUTSIDE OF THE [place] IN LAST 30 DAYS: No - HPI Patient complains to provider of: Post surgical problem, Incision problem, Wound infection. No: Abrasion, Laceration, Puncture wound, Stab wound, Crush injury, Contusion, Hematoma, Post surgical bleeding Occurred: Other - 4 days ago - Related Data Allergies/Adverse Reactions: Penicillins Allergy (Unknown, Verified 06/24/20 09:04) Past Medical History - General Information source: Patient - Social History Smoking Status: Former Smoker - Patient smoked 2 packs a day up until 22 years ago when his daughter was born Cigarette use (# per day): No Chew tobacco use (# tins/day): No Smoking Education Provided: No Frequency of alcohol use: Occasional - Last drank on New '[place] Drug Abuse: None Lives with: Family Family History: Reviewed & Not Pertinent Patient has suicidal ideation: No Patient has homicidal ideation: No Renal/ Medical History: Denies: Hx Peritoneal Dialysis Musculoskeletal Medical History: Reports Hx Musculoskeletal Trauma Past Surgical History: Reports: Hx Abdominal Surgery - rt inguinal hernia, Hx Inguinal Hernia - Immunizations Immunizations up to date: Yes Hx Diphtheria, Pertussis, Tetanus Vaccination: Yes Review of Systems - Review of Systems Constitutional: No symptoms reported EENT: No symptoms reported Cardiovascular: No symptoms reported Respiratory: No symptoms reported Gastrointestinal: No symptoms reported Genitourinary: No symptoms reported Male Genitourinary: No symptoms reported Musculoskeletal: No symptoms reported Skin: See HPI, Change in color, Other - Abscess mid abdomen Hematologic/Lymphatic: No symptoms reported Neurological/Psychological: No symptoms reported Physical Exam - Vital signs Vitals: Temp Pulse Resp BP Pulse Ox 97.8 F 70 16 144/94 H 97 06/26/20 08:49 06/26/20 08:49 06/26/20 08:49 06/26/20 08:49 06/26/20 08:49 Interpretation: Normal - General General appearance: Appears well, Alert - HEENT Head: Normocephalic, Atraumatic Eyes: Normal Pupils: PERRL - Respiratory Respiratory status: No respiratory distress Chest status: Nontender Breath sounds: Normal Chest palpation: Normal - Cardiovascular Rhythm: Regular Heart sounds: Normal auscultation Murmur: No - Abdominal Inspection: Normal Distension: No distension Bowel sounds: Normal Tenderness: Nontender Organomegaly: No organomegaly - Rectal Prostate: Other - Deferred - Genitourinary Scrotum: Other - Deferred - Back Back: Normal, Nontender - Extremities General upper extremity: Normal inspection, Nontender, Normal color, Normal ROM, Normal temperature General lower extremity: Normal inspection, Nontender, Normal color, Normal ROM, Normal temperature, Normal weight bearing. No: Mariano's sign - Neurological Neuro grossly intact: Yes Cognition: Normal Orientation: AAOx4 Susan Coma Scale Eye Opening: Spontaneous Susan Coma Scale Verbal: Oriented [place] Coma Scale Motor: Obeys Commands Susan Coma Scale Total: 15 Speech: Normal Motor strength normal: LUE, RUE, LLE, RLE Sensory: Normal - Psychological Associated symptoms: Normal affect, Normal mood - Skin Skin Temperature: Warm Skin Moisture: Dry Skin Color: Other - Abscess to mid abdomen approximately 8 cm width by 7 cm length and ovoid fashion with a central 1 cm abscess that had packing removed by myself. Repacked with 3 cm of iodoform. Course - Vital Signs Vital signs: Temp Pulse Resp BP Pulse Ox 97.8 F 70 18 144/94 H 99 06/26/20 10:56 06/26/20 08:49 06/26/20 10:56 06/26/20 08:49 06/26/20 10:56 - Laboratory Results Critical Laboratory Results Reviewed: No Critical Results Attending or Supervising Physician who Reviewed Labs: SHERMAN SUAREZ JR - Radiology Results Critical Radiology Results Reviewed: No Critical Results - No critical results Attending or Supervising Physician who Reviewed Radiology: SHERMAN SUAREZ JR Procedures - Incision and Drainage Abdomen Time completed: 11:00 Type: Simple Anesthetic type: Other mL's of anesthetic: 0 I&D procedure: Iodoform packing placed, Sterile dressing applied, Other - Actually repacking done on patient. Incision Method: Incision made with needle Discharge - Discharge Clinical Impression: Abdominal wall abscess, Incision repacking Condition: Stable Disposition: HOME, SELF-CARE Instructions: Abscess ([facility]), Cephalexin ([facility]), Trimethoprim-Sulfa ([facility]) Additional Instructions: Follow-up with personal doctor and may return to ER if symptoms persist or worsen. Take your antibiotics as directed. May gently clean wound with pHisoHex/Hibiclens soap.. Apply to affected skin and then rinse with cool water and then pat dry.. Do not get this into the abscess wound itself only the reddened skin Prescriptions: Sulfamethoxazole/Trimethoprim [Bactrim Ds Tablet] 1 tab PO BID 10 Days #20 tablet Cephalexin Monohydrate [Keflex 500 mg Capsule] 500 mg PO BID #20 capsule
[2020-06-26] MEDS ORDERED: CEFTRIAXONE INJ 1000 MG VIAL IM ONE (10:29)
[2020-06-26] MEDS ORDERED: GENTAMICIN SULFATE INJ 80 MG/2 ML VIAL IM ONE (10:30)
[2020-06-26] MEDS ORDERED: LIDOCAINE 1% INJ (10 MG/ML) 10 ML MDV ONE (10:35)
== END 2020-06-26 11:00 | disposition home or self-care (01) ==
LOC: ER 08:47
DX: Z48.01 Encounter for change or removal of surgical wound dressing (principal); L02.211 Cutaneous abscess of abdominal wall; T36.96XA Underdosing of unspecified systemic antibiotic, initial encounter; Z91.120 Patient's intentional underdosing of medication regimen due to financial hardship; Z91.14 Patient's other noncompliance with medication regimen; Z87.891 Personal history of nicotine dependence; Z88.0 Allergy status to penicillin
CPT/HCPCS: 99284; 96372; J1580; J0696